=== PATIENT | female | born 1995 | race Caucasian/White ===

== ENCOUNTER 2024-09-22 08:48 | Emergency (ER) | payer BC, SELFPAY ==
[2024-09-22 09:06] VITALS: BP 142/87; PULSE 93; RESP 18; TEMP 36.7; O2SAT 98
--- NOTE | 2024-09-22 09:14 | ED_ITS ---
HPI - Eye Problem General: Chief complaint: Eye Problems Stated complaint: R eye can't see out of it Time Seen by Provider: 09/22/24 08:55 History of Present Illness: HPI: Patient drove in from [place]. Last night no some discharge from her right eye. Patient has anterior eye pain and has been wiping the discharge from her eyes. No fevers, chills, restriction of extraocular movement. Patient was previously infected in that eye and had to have ophthalmologic surgery for MRSA infection. Is concerned that this is possibly recurring. REVIEW OF SYSTEMS: 10 systems reviewed and otherwise unrema rkable except for those noted in HPI. PHYSCIAL EXAM: Triage vital signs reviewed Gen: A&O NAD HEENT: NCAT, EOMI, not icteric. External ears normal. No rhinorrhea. Moist mucous membranes. Extraocular movements full in bilateral eyes, no restriction of extraocular movement. Patient with discharge and conjunctival injection. Patient has some minor upper lid erythema as well without palpable stye on either lid. Neck: Supple, full range of motion, no observable masses, No meningeal sign. Lungs: No Respiratory distress. CV: RRR, no edema. Abdomen: Soft, nondistended, No rebound tenderness. MSK: No joint swelling, no redness. Skin: No rashes, petechiae, lesions. Normal color per patient. Neuro: Normal Gait, Grossly intact. Psych: Appropriate for situation. PROCEDURES: N/A Related Data Previous Rx's ?Medication ?Instructions ?Recorded erythromycin 5 mg/gram (0.5 %) eye 1 applic ophthalmic (eye) Q8H #3.5 09/22/24 ointment (3.5 gram tube) grams Allergies Allergy/AdvReac Type Severity Reaction Status Date / Time No Known Allergies Allergy Verified 09/22/24 09:11 Course Vital Signs: Vital signs: Vital Signs Temperature 98.1 F 09/22/24 09:06 Pulse Rate 93 09/22/24 09:06 Respiratory Rate 18 09/22/24 09:06 Blood Pressure 142/87 09/22/24 09:06 Pulse Oximetry 98 09/22/24 09:06 Oxygen Delivery Me thod Room Air 09/22/24 09:06 MDM - Eye Problem Medical Decision Making MEDICAL DECISION MAKING: Differential diagnoses considered but not limited to: Acute conjunctivitis of bacterial, viral, or allergic origin. Preseptal cellulitis, postseptal cellulitis, endophthalmitis, others. Vitals nonactionable. Given history, examination, and pretest risk factors, PE most consistent with acute conjunctivitis. Prescribed erythromycin ointment trial. Advised to use the erythromycin ointment for the last 48 hours as well as warm compresses and return if no improvement in symptoms. DISPO: CHERYL Candelario MD [place] [facility] [place] [phone] No radiology studies performed this visit Discharge Plan Discharge Patient Disposition: Home Clinical Impression: Acute conjunctivitis of right eye Qualifiers: Acute conjunctivitis type: unspecified Qualified Code(s): H10.31 - Unspecified acute conjunctivitis, right eye Condition: Stable Prescriptions: New erythromycin 5 mg/gram (0.5 %) ointment 1 applic ophthalmic (eye) Q8H Qty: 3.5 0RF Discharge Orders: Discharge ED (Routine); Ordered 09/22/24 Ordered By: Monico Candelario Discharge Diet: Usual diet Discharge Activity: Resume usual activity Patient Instructions: Opioid Safety, Pain Management, Patient Portal & Maninder Instructions Activity Restrictions/Additional Instructions: It has been a pleasure caring for you in the emergency department. Please ensure that you follow-up with your primary care physician for review of all data obtained during this encounter including any incidental findings and laboratory values. Keep in mind that if your condition worsens in any way, I strongly recommend that you return to the emergency department for repeat evaluation immediately. Print Language: Indian Coding Level of Care Code ED [employer] Support Employee for [employer]iel [employer]
[2024-09-22] MEDS: erythromycin Op Oint 1 gm 1 APPLIC EYE-RIGHT (09:19)
== END 2024-09-22 09:20 | disposition home or self-care (01) ==
PROVIDERS: Emergency Provider General Practice
DX: H10.31 Unspecified acute conjunctivitis, right eye (principal)
CPT/HCPCS: 99283; J9999

== ENCOUNTER → 2024-10-25 08:54 | Outpatient (BNVA) | payer MEDICAID, SELFPAY | PROVIDERS: PCP Family Medicine; Visit Provider Family Medicine | DX: Z51.81 Encounter for therapeutic drug level monitoring (principal); R53.81 Other malaise; R53.83 Other fatigue | CPT/HCPCS: 80053; 84439; 84443; 85025 ==